=== PATIENT | female | born 1970 | race Caucasian/White ===

== ENCOUNTER 2023-07-04 11:46 | Day surgery (SDC) | payer BC, OTHER ==
[~2023-07-04 11:46] MED LIST: SODIUM CHLORIDE 0.9% 1,000 ML IV SCH
[2023-07-04 12:12] LABS: Glucose,Whole Blood 110 mg/dL (70-110)
[2023-07-04 12:33] VITALS: BP 196/97; PULSE 88; RESP 18; TEMP 98.4
--- NOTE | 2023-07-04 16:07 | P.EPPROC ---
- EP Procedure Note Electrophysiology Procedure Note: Diagnosis Recurrent syncope Baseline 12 EKG shows sinus mechanism normal UT narrow QRS normal ST segments normal QT interval Tilt table test per protocol. Baseline blood pressure 159/84 mmHg, Baseline heart rate 80 beats a minute With upright position there was an immediate drop in blood pressure 228/77 mmHg and patient felt dizzy Following that the blood pressure stabilized to 140/82 mmHg Subsequently a gradual progressive drop in blood pressure. The lowest blood pressure recorded was 113/75 mmHg with an increase in heart rate commensurate with the lowering blood pressure The patient felt hot and nauseous No syncope She was laid supine blood pressure increased 242 87 mmHg in the heart rate normalized to 75 beats a minute Impression Normal twelve-lead EKG Orthostatic hypotension syndrome without syncope
== END 2023-07-04 14:07 | disposition home or self-care (01) ==
LOC: CATHEP 11:46
PROVIDERS: ATTEND Internal Medicine Clinical Cardiac Electrophysiology
DX: I95.1 Orthostatic hypotension (principal)
CPT/HCPCS: 93660